=== PATIENT | female | born 1990 | race Caucasian/White ===

== ENCOUNTER 2024-06-03 16:02 | Emergency (ER) | payer SELFPAY ==
[2024-06-03 16:15] VITALS: BP 147/107; PULSE 113; RESP 15; TEMP 36.6; O2SAT 98
--- NOTE | 2024-06-03 17:00 | ED.DENTAL ---
HPI - Dental/Oral General Chief complaint: Dental/Oral Stated complaint: right side toothache Source: patient, RN notes reviewed and old records reviewed Mode of arrival: ambulatory Limitations: no limitations History of Present Illness HPI Narrative: Patient presents with complaints of right-sided dental pain. She reports that she has had a broken right lower molar for ?a while?. She reports that a few days ago she ate a salad with croutons on it, further damaging the tooth. She has been taking [id number] pain relief with poor results. She reports that pain is interfering with her ability to sleep. She does not have a dentist, she does understand the need to find 1. She denies any fever, chills, sweats. She denies any other injury or trauma. She is able to manage own secretions, no drooling or stridor Related Data Allergies Allergy/AdvReac Type Severity Reaction Status Date / Time No Known Allergies Allergy Verified 06/03/24 16:23 Review of Systems Review of Systems: All systems reviewed & are unremarkable except as noted in HPI and below Constitutional: Constitutional: Reports no additional constitutional complaints ENT: Reports system reviewed and no additional complaints, except as documented, Reports as per HPI and Reports mouth pain Cardiovascular: Cardiovascular: Reports no additional cardiovascular complaints Respiratory: Respiratory: Reports no additional respiratory complaints Gastrointestinal: Gastrointestinal: Reports no additional gastrointestinal complaints PMFSH Comments At the time of my signature, I reviewed and agree with the nursing past medical, surgical, social, and family history. There is no relevant family history pertinent to the patient complaint. Exam Const: General: cooperative, no acute distress, alert and awake Orientation/consciousness: oriented to person, oriented to place and oriented to time HENMT: Head: normal to inspection Teeth and gingiva: poor dentition and other (Right lower molar cracked in half, associated gingival swelling) Resp: Effort & Inspection: normal respiratory effort and able to speak in complete sentences Auscultation: clear to auscultation bilaterally, no crackles, no rales, no rhonchi and no wheezes Cardio: Palpation: normal PMI Rate: regular rate Rhythm: regular rhythm Heart sounds: S1 normal heart sound present and S2 normal heart sound present Neuro: General: oriented to person, oriented to place and oriented to time Cranial nerves: Yes CN's II-XII intact bilaterally Psych: Appearance: grossly normal Thought process: Normal thought process present Insight: Good insight present (Psych) Judgement: Good judgement present (Psych) Course Course Level of Care: Express Care Visit Vital Signs Vital signs: Vital Signs Temperature 98 F 06/03/24 16:15 Pulse Rate 113 H 06/03/24 16:15 Respiratory Rate 15 06/03/24 16:15 Blood Pressure 147/107 H 06/03/24 16:15 Pulse Oximetry 98 06/03/24 16:15 Oxygen Delivery Room Air 06/03/24 16:15 Temperature 98 F 06/03/24 16:15 Pulse Rate 113 H 06/03/24 16:15 Respiratory Rate 15 06/03/24 16:15 Blood Pressure 147/107 H 06/03/24 16:15 Pulse Oximetry 98 06/03/24 16:15 Oxygen Delivery Room Air 06/03/24 16:19 Reviewed MDM - Dental/Oral MDM Narrative Medical decision making narrative: Patient with obvious dental injury and resulting infection. Nontoxic appearing. Start outpatient antibiotic therapy. Patient encouraged follow-up with dentist, primary provider. Emergency department for new or worse symptoms. Discharge instructions reviewed with patient, as well as provided in writing per nursing staff. The instructions also include specific and strict return/GO TO THE ER as well as f/u information. All questions have been answered, and the patient deny any further questions with discharge and discharge plan. Some parts of this dictation were generated by voice nathalia
== END 2024-06-03 17:12 | disposition home or self-care (01) ==
PROVIDERS: Emergency Provider Nurse Practitioner Family
DX: K04.7 Periapical abscess without sinus (principal); R03.0 Elevated blood-pressure reading, without diagnosis of hypertension
CPT/HCPCS: 99203; G0463